=== PATIENT | male | born 1935 | race Caucasian/White ===

== ENCOUNTER 2017-03-01 08:03 | Inpatient (IN) | payer MEDICARE, OTHER ==
[2017-03-01] MEDS ORDERED: SODIUM CHLORIDE 0.9% 1000ML 1,000 ML IV SCH (08:45)
[2017-03-01 08:55] LABS: HEMATOCRIT 38 % (39-53); MEAN CORPUSCULAR VOLUME 96 fL (80-100)
[2017-03-01] MEDS ORDERED: SODIUM CHLORIDE 0.9% FLUSH 10 ML SOL IV PRN (08:55)
[2017-03-01 09:05] LABS: CALCIUM 8.7 mg/dl (8.5-10.1); POTASSIUM 4.1 mMol/L (3.5-5.1)
[2017-03-01 09:41] LABS: BASOPHILS % (MANUAL) 0 % (0-3); EOSINOPHILS % (MANUAL) 0 % (0-9); LYMPHOCYTES % (MANUAL) 5 % (10-50); NORMAL RBCS PRESENT
[2017-03-01] MEDS ORDERED: SODIUM CHLORIDE 0.9% 1000ML 1,000 ML IV ONE ×3 (10:36→19:18)
[2017-03-01] MEDS ORDERED: ALBUTEROL HFA 60 PUFF/INHALER INH PRN (12:57)
[2017-03-01] MEDS ORDERED: ALBUTEROL NEB SOL 2.5MG/3ML 1 VIAL SOL NEB PRN (13:20)
[2017-03-01] MEDS ORDERED: ACETAMINOPHEN 500 MG 500 MG TAB PO PRN (13:30)
[2017-03-01] MEDS: ALBUTEROL/IPRATROPIUM 1 VIAL SOL INH SCH ×2 (13:50→20:21)
[2017-03-01] MEDS: ENOXAPARIN 100 MG SOL SC SCH (16:46)
[2017-03-01] MEDS: SODIUM CHLORIDE 0.9% 1000ML 1,000 ML IV SCH (19:30)
[2017-03-01] MEDS: FLUTICASONE PROPIONATE SPR NAS SCH (20:20)
[2017-03-01] MEDS: BUDESONIDE 0.5 MG/2 ML AMPUL.NEB INH SCH (20:21)
[2017-03-01] MEDS: PRAVASTATIN SODIUM 20 MG TAB PO SCH (20:21)
[2017-03-01] MEDS: CALCIUM CARBONATE 500 MG TAB PO SCH (20:21)
[2017-03-01] MEDS ORDERED: FLUTICASONE/SALMETEROL 250/50 1 PUFF DSK INH SCH (21:00)
[2017-03-01] MEDS ORDERED: BUDESONIDE 0.25 MG/2 ML SUS INH SCH (21:00)
[2017-03-02] MEDS: ALBUTEROL/IPRATROPIUM 1 VIAL SOL INH SCH ×4 (01:07→22:06)
[2017-03-02] MEDS: SODIUM CHLORIDE 0.9% 1000ML 1,000 ML IV SCH ×4 (05:27→22:28)
[2017-03-02 08:06] LABS: CALCIUM 7.9 mg/dl (8.5-10.1); HEMATOCRIT 34 % (39-53); MEAN CORPUSCULAR HGB CONC 34.3 gm/dl (32.0-36.0); MEAN CORPUSCULAR VOLUME 95 fL (80-100); POTASSIUM 4.8 mMol/L (3.5-5.1)
[2017-03-02] MEDS ORDERED: SODIUM CHLORIDE 0.9% 1000ML 1,000 ML IV ONE (08:44)
[2017-03-02 08:50] LABS: BASOPHILS % (MANUAL) 0 % (0-3); EOSINOPHILS % (MANUAL) 0 % (0-9); LYMPHOCYTES % (MANUAL) 7 % (10-50); NORMAL RBCS NORMAL RBCS
[2017-03-02] MEDS: BUDESONIDE 0.5 MG/2 ML AMPUL.NEB INH SCH ×2 (09:18→22:07)
[2017-03-02] MEDS: ASPIRIN 81 MG CHEWABLE CTB PO SCH (09:19)
[2017-03-02] MEDS: LORATADINE 10 MG TAB PO SCH (09:19)
[2017-03-02] MEDS: DILTIAZEM ER 120 MG C24 PO SCH (09:19)
[2017-03-02] MEDS: MONTELUKAST SODIUM 10 MG TAB PO SCH (09:19)
[2017-03-02] MEDS: FLUTICASONE PROPIONATE SPR NAS SCH ×2 (09:22→22:15)
[2017-03-02] MEDS ORDERED: SODIUM CHLORIDE 0.9% 500 ML 500 ML IV ONE (12:12)
[2017-03-02 13:23] LABS: CALCIUM 7.7 mg/dl (8.5-10.1); POTASSIUM 3.9 mMol/L (3.5-5.1)
[2017-03-02] MEDS: ENOXAPARIN 100 MG SOL SC SCH (15:21)
[2017-03-02] MEDS: CALCIUM CARBONATE 500 MG TAB PO SCH (22:09)
[2017-03-02] MEDS: PRAVASTATIN SODIUM 20 MG TAB PO SCH (22:09)
[2017-03-03] MEDS: ALBUTEROL/IPRATROPIUM 1 VIAL SOL INH SCH ×3 (02:04→13:31)
[2017-03-03] MEDS: SODIUM CHLORIDE 0.9% 1000ML 1,000 ML IV SCH (06:12)
[2017-03-03 07:18] LABS: CALCIUM 7.8 mg/dl (8.5-10.1); POTASSIUM 3.8 mMol/L (3.5-5.1)
[2017-03-03 07:27] LABS: HEMATOCRIT 32 % (39-53); MEAN CORPUSCULAR HGB CONC 34.7 gm/dl (32.0-36.0); MEAN CORPUSCULAR VOLUME 95 fL (80-100)
[2017-03-03 08:01] LABS: LYMPHOCYTES % (MANUAL) 5 % (10-50)
[2017-03-03 08:02] LABS: ANISOCYTOSIS SLIGHT AMT; BASOPHILS % (MANUAL) 0 % (0-3); EOSINOPHILS % (MANUAL) 1 % (0-9)
[2017-03-03] MEDS ORDERED: BISACODYL 5 MG TAB ECT PO PRN (08:09)
[2017-03-03] MEDS: ASPIRIN 81 MG CHEWABLE CTB PO SCH (08:40)
[2017-03-03] MEDS: DILTIAZEM ER 120 MG C24 PO SCH (08:40)
[2017-03-03] MEDS: LORATADINE 10 MG TAB PO SCH (08:41)
[2017-03-03] MEDS: MONTELUKAST SODIUM 10 MG TAB PO SCH (08:41)
[2017-03-03] MEDS: FLUTICASONE PROPIONATE SPR NAS SCH (08:43)
[2017-03-03] MEDS: BUDESONIDE 0.5 MG/2 ML AMPUL.NEB INH SCH (09:26)
[2017-03-03 10:16] VITALS: BP 147/78
[2017-03-03 10:17] VITALS: TEMP 97.7
[2017-03-03 13:33] VITALS: RESP 16
[2017-03-03 13:44] VITALS: PULSE 73; O2SAT 97
== END 2017-03-03 14:35 | disposition home or self-care (01) | DRG 684 ==
LOC: ED 08:03 → ACUTE CARE 11:31
PROVIDERS: ADMIT Family Medicine; ATTEND Family Medicine
DX: N17.9 Acute kidney failure, unspecified (principal); J98.11 Atelectasis; E86.0 Dehydration; R79.89 Other specified abnormal findings of blood chemistry; J45.909 Unspecified asthma, uncomplicated; M43.6 Torticollis; R52 Pain, unspecified; N18.9 Chronic kidney disease, unspecified; K59.00 Constipation, unspecified; R09.02 Hypoxemia
CPT/HCPCS: 36415; 71010; 72040; 80048; 82550; 84484; 85007; 85027; 85378; 87430; 93005; 94150; 94640; 96365; 96366; 99284; 99285; J1650; J7620